=== PATIENT | male | born 1950 | race Caucasian/White ===

== ENCOUNTER 2016-09-28 07:04 | Emergency (ER) | payer SELFPAY ==
[~2016-09-28] VITALS: Ht 165.1 cm; Wt 81.8 kg
[~2016-09-28 07:04] MED LIST: ADVIL,NUPRIN,M200 MG PO; ANTIVERT25 MG PO; ASPIRIN EC325 MG PO; FIORICET WI1 CAPSULE PO; GLUCOPHAGE500 MG PO; HYDROCHLOROTHIA25 MG PO; IBUPROFEN600 MG PO; KEFLEX500 MG PO; MEDROL DOSEPAK4 MG PO; NOHOMEMEDS; PERCOCET 5/31 TABLET PO; PREDNISONE20 MG PO; VICODIN,LORT1 TABLET PO
[2016-09-28 07:23] LABS: POINT-OF-CARE METER ID UU13113778
[2016-09-28 08:11] LABS: EOSINOPHIL (%) 0 % (0-5); HEMATOCRIT 48.4 % (38.0-50.0); IMMATURE GRANULOCYTE (%) 0.3 % (0.0-0.7); INSTRUMENT ABS NEUTROPHIL CT 6.3 K/uL; LYMPHOCYTE COUNT 1.2 K/uL (1.0-2.8); MCH 32.9 PG (29.0-34.0); MCHC 35.5 G/DL (30.0-36.0); MCV 92.5 FL (86-99); MEAN PLAT.VOLUME 9.6 uM^3 (9.0-12.4); MONOCYTE (%) 17.8 % (3-12); MONOCYTE COUNT 1.6 K/uL (0-0.8); NEUTROPHIL (%) 68.6 % (45-76); NEUTROPHIL COUNT 6.3 K/uL (1.8-6.4); PLATELET COUNT 168 K/uL (156-360); RBC DIS.WIDTH-CV 11.8 % (11.8-14.6); RBC DIS.WIDTH-SD 40.3 % (39-53); RED BLOOD COUNT 5.23 M/uL (4.00-5.50); WHITE BLOOD COUNT 9.2 K/uL (4.1-10.2)
[2016-09-28 08:11] LABS: ADD MIUA? YES; BILIRUBIN NEGATIVE; BLOOD SMALL; COLOR YELLOW ((YELLOW)); GLUCOSE (STRIP) >=500; KETONES 80; LEUKOCYTES NEGATIVE; NITRITE NEGATIVE; PROTEIN (STRIP) >=500; SPECIFIC GRAVITY 1.037 (1.000-1.030); UROBILINOGEN 0.2 MG/DL (0.2-1.0)
[2016-09-28 08:12] LABS: CARBON DIOXIDE (BICARBONATE) 24.1 MEQ/L (20-31)
[2016-09-28 08:20] LABS: BACTERIA NONE SEEN /HPF; EPITHELIAL CELLS NONE SEEN /HPF; MUCUS TRACE /LPF; RED BLOOD CELLS 0-5 /HPF (0-5); WHITE BLOOD CELLS 0-5 /HPF (0-5)
[2016-09-28 08:40] LABS: CHLORIDE 97 mEq/L (99-109); POTASSIUM 3.5 mEq/L (3.7-5.4); SODIUM 130 mEq/L (136-147)
[2016-09-28 08:42] LABS: GLUCOSE 313 mg/dL (70-99)
[2016-09-28 08:43] LABS: ANION GAP 10 MEQ/L (2-14)
[2016-09-28 08:44] LABS: TOTAL BILIRUBIN 0.5 mg/dL (0.0-1.0)
[2016-09-28 08:46] LABS: ALKALINE PHOSPHATASE 93 IU/L (3-129); GFR ESTIMATE (CALCULATED) > 59 mL/min/
[2016-09-28 08:47] LABS: UREA NITROGEN (BUN) 13 mg/dL (9-23)
[2016-09-28] MEDS ORDERED: METFORMIN HCL500 MG PO (10:20)
[2016-09-28] MEDS ORDERED: ZOFRAN4 MG PO (10:20)
[2016-09-28] MEDS ORDERED: LEVAQUIN750 MG PO (10:20)
[2016-09-28 10:28] LABS: POINT-OF-CARE METER ID UU13113702
[2016-09-28 11:11] VITALS: BP 174/94
== END 2016-09-28 11:12 | disposition home or self-care (01) ==
LOC: EME 07:04
PROVIDERS: Emergency Medicine
DX: E11.65 Type 2 diabetes mellitus with hyperglycemia (principal); J18.9 Pneumonia, unspecified organism; R11.2 Nausea with vomiting, unspecified
CPT/HCPCS: 74022; 80053; 81003; 82803; 82948; 85025; 99281; 99284; J2405; J7030